=== PATIENT | female | born 1940 | race African-American/Black ===

== ENCOUNTER 2017-11-12 08:14 | Inpatient (IN) ==
[2017-11-12] MEDS ORDERED: Metoprolol Tartrate 25 MG Tablet PO SCH (09:15)
[2017-11-12] MEDS ORDERED: Chlorhexidine Gluconate 2% 1 Pack (2 Cloths) TOPICAL SCH (09:15)
[2017-11-12] MEDS ORDERED: Sodium Chlor 0.9% Inj 500 ML IV.SIG SCH (10:00)
[2017-11-12] MEDS ORDERED: ceFAZolin 2 GM/NS 100 ML IV; Q8H IV.SIG SCH ×2 (10:00)
[2017-11-12] MEDS ORDERED: Bupivacaine/Epinephrine 0.5% Inj 50 ML Vial ONE (11:19)
[2017-11-12] MEDS ORDERED: Neostigmine Inj 5 MG/5 ML Syringe IV.PUSH ONE (12:00)
[2017-11-12] MEDS ORDERED: Labetalol HCl Inj 100 MG/20 ML Vial IV.CONT ONE (12:00)
[2017-11-12] MEDS ORDERED: Glycopyrrolate Inj 1 MG/5 ML Syringe IV.PUSH ONE (12:00)
[2017-11-12] MEDS ORDERED: Lidocaine PF 1% Inj 5 ML Syringe INFILTRATN ONE (12:00)
[2017-11-12] MEDS ORDERED: fentaNYL Citrate Inj 100 MCG/2 ML Ampul ONE ×2 (15:08→16:51)
[2017-11-12] MEDS ORDERED: Morphine Inj 4 MG/ML Vial IV.PUSH PRN (16:16)
[2017-11-12] MEDS ORDERED: Post-op Orders (for Pharmacy) OTHER ONE (16:16)
[2017-11-12] MEDS ORDERED: Naloxone Inj 0.4 MG/ML Vial IV.PUSH PRN (16:16)
--- NOTE | 2017-11-12 16:16 | P.OP ---
Date of procedure: 11/18/17 Procedure: Robot assisted laparoscopic ascending colectomy Anesthesia: GETA Surgeon: Greg Lewis MD Sports Medicine Coordinator: Areli LIU Estimated blood loss (mL): 50 Pathology: other (right colon with polyp) Operation and Findings: EBL: 50 cc Operative findings: Uncomplicated ascending colectomy. Ascending colon opened on the back table with approximately 2 inch diameter flat polyp. Procedure in detail: The patient was taken to the operating room and placed in the supine position. Gen. endotracheal anesthesia was induced. The abdomen was prepped and draped in usual sterile fashion and a surgical timeout was performed to verify correct patient procedure and site. A 12 mm incision was made in the left lower abdomen and a 5mm Optiview port was placed in her left lower abdomen. The abdomen was insufflated to 15 mmHg with CO2 gas which the patient tolerated well. An 8 mm long robotic trocar was placed in the suprapubic area. A 12 mm robotic port was placed in the left upper abdomen. An 8 mm robotic port was placed in the subxiphoid area to the left of the falciform ligament. A 5 mm legal executive assistant port was placed in the left lower abdomen. The initial camera port was changed to a 12 mm disposable port. The patient was turned slightly to the left and in slight trendelenberg. Small bowel was placed towards the pelvis and left-sided of the abdomen. The cecum and ascending colon was visualized. At this point the robot was docked. The ascending and transverse colon were elevated and the ileocolic pedicle identified in the mesentery. Careful dissection with the hook electrocautery was used to identify the vessels and dissect them free from surrounding fatty tissue. The duodenum was also well visualized. The ileocolic vessels were taken down using the da janeth vessel sealer device. Blunt dissection through the mesentery underneath the hepatic flexure was performed until the liver was visible. The hepatic flexure was then taken down with the vessel sealer. Lateral attachments of the appendix and terminal ileum and cecum and ascending colon were divided. The remaining mesentery was divided using the vessel sealer up into a point about 5-10 cm from the ileocecal valve. The terminal ileum was divided using the robotic blue load stapler. Mesentery to the transverse colon just to the right of midline was divided and the colon freed of surrounding fat. The proximal transverse colon was transected with the robotic blue load stapler using 2 fires. The tinea of the transverse colon was free of any fatty tissue. The terminal ileum was brought up to lay alongside the transverse colon. An a [id number] functional end-to-end anastomosis was then performed. A 3-0 silk suture was placed at the end of the colon and small bowel for traction. The hook electrocautery was used to create small enterotomy the antimesenteric small bowel and colon. The da Janeth blue load stapler was placed and fired at the antimesenteric portion. There is no bleeding and no tension on the anastomosis. For closure of the common enterotomy three 3-0 silk sutures were placed to reapproximate the edges. A second blue load stapler was fired to close the enterotomy. 3-0 silk suture was placed at the end of the staple line. The mesentery was closed with a running 2-0 silk suture. The robot was then undocked. the incision in the left upper abdomen was elongated to approximately 3-4 cm. The specimen was removed through this incision after placement of an Rufus wound retractor. The fascia was then closed in 2 layers with running #1 PDS. The incision was irrigated. Skin closed with with 4-0 subcuticular Monocryl and Dermabond. The patient tolerated the procedure well was extubated and taken to PACU in stable condition. All sponge and management counts were correct.
[2017-11-12] MEDS: Ketorolac Inj 30 MG/ML (IVP) Vial IV.PUSH SCH ×2 (18:15→23:30)
[2017-11-12] MEDS: Senna/Docusate Sodium 8.6/50 MG Tablet PO SCH (23:23)
[2017-11-13] MEDS: Sod Chloride 0.9% Inj 1,000 ML IV.CONT SCH ×3 (00:45→20:07)
[2017-11-13] MEDS: Ketorolac Inj 30 MG/ML (IVP) Vial IV.PUSH SCH ×4 (06:01→23:08)
[2017-11-13] MEDS: amLODIPine 5 MG Tablet PO SCH (10:12)
[2017-11-13] MEDS: Lisinopril 20 MG Tablet PO SCH (10:13)
[2017-11-13] MEDS: Senna/Docusate Sodium 8.6/50 MG Tablet PO SCH ×2 (10:13→20:08)
--- NOTE | 2017-11-13 11:58 | P.PNGS ---
Subjective Interval history: She denies pain except for mild left side pain when she gets up. No other complaints. Physical Exam Vital signs: Vital Signs 11/12/17 16:45 11/12/17 17:00 11/12/17 17:15 Temperature 95.6 F L 96.4 F L Pulse Rate 65 57 L 58 L Respiratory Rate 12 12 12 Blood Pressure 160/71 H 157/72 H 162/72 H Pulse Oximetry 100 100 100 11/12/17 17:30 11/12/17 17:45 11/12/17 18:00 Temperature 97 F L Pulse Rate 61 60 61 Respiratory Rate 12 12 12 Blood Pressure 148/66 H 147/65 H 140/65 Pulse Oximetry 100 100 100 11/12/17 18:15 11/12/17 18:25 11/12/17 20:00 Temperature 97.2 F L 97.3 F L Pulse Rate 61 79 Respiratory Rate 12 18 Blood Pressure 147/68 H 159/78 H Pulse Oximetry 100 100 100 11/13/17 00:00 11/13/17 08:00 Temperature 97.8 F 98.4 F Pulse Rate 68 73 Respiratory Rate 18 18 Blood Pressure 165/87 H 142/79 H Pulse Oximetry 99 100 Intake & Output 11/12/17 11/13/17 11/13/17 18:59 06:59 18:59 Intake Total 1800 / 1800 440 / 440 Output Total 725 / 725 750 / 750 Balance 1075 / 1075 -310 / -310 Weight 77.1 kg Intake: IV 200 / 200 200 / 200 Ofirmev Inj 1,000 mg In 100 ml 100 / 100 200 / 200 @ 400 mls/hr IV.SIG Q6H HAN Rx# :[id number] Ancef Inj 2,000 MG In NS Inj 80 100 / 100 ML @ 200 mls/hr IV.SIG REPAIR WELDER HAN Rx#:[id number] Flagyl 500 MG Inj 100 ML @ 0 0 / 0 mls/hr IV.SIG .STK-MED ONE Rx#: [id number] Oral 240 / 240 Anesthesia Amount 1600 / 1600 Output: Urine 750 / 750 Estimated Blood Loss 50 / 50 Urine Amount (Catheter) 675 / 675 Indwelling Urethral Catheter 675 / 675 Other: Weight On Admission 77.1 kg Narrative: NAD Inc c/d/i Galvan jewell urine - Urinary Catheter Management Indwelling Urethral Catheter Cath placed during this visit: yes Reason for continuing: Other continuation reason Insertion date: 11/12/17 Assessment and Plan - Plan POD 1 s/p ascending colectomy. Stable post op. D/c galvan. Fulls. Encourage ambulation.
[2017-11-13] MEDS: Heparin - SQ 10,000 UNITS/ML Vial SQ SCH (18:12)
[2017-11-14] MEDS: Heparin - SQ 10,000 UNITS/ML Vial SQ SCH ×2 (04:55→18:28)
[2017-11-14] MEDS: Ketorolac Inj 30 MG/ML (IVP) Vial IV.PUSH SCH ×4 (05:00→23:41)
[2017-11-14] MEDS: amLODIPine 5 MG Tablet PO SCH (08:23)
[2017-11-14] MEDS: Senna/Docusate Sodium 8.6/50 MG Tablet PO SCH ×2 (08:23→21:21)
[2017-11-14] MEDS: Sod Chloride 0.9% Inj 1,000 ML IV.CONT SCH (08:23)
[2017-11-14] MEDS: Lisinopril 20 MG Tablet PO SCH (08:24)
--- NOTE | 2017-11-14 09:20 | P.PNGS ---
Subjective Interval history: She is tolerating fulls. Some belching and some flatus. No nausea. Minimal pain. Has been ambulatinig in halls with assistance. She wants to go home. Physical Exam Vital signs: Vital Signs 11/13/17 12:00 11/13/17 16:00 11/13/17 20:06 Temperature 98.5 F 97.9 F Pulse Rate 73 67 Respiratory Rate 18 18 18 Blood Pressure 156/66 H 181/77 H Pulse Oximetry 100 99 11/13/17 20:36 11/14/17 00:07 11/14/17 02:36 Temperature 98.0 F 98.3 F Pulse Rate 72 74 Respiratory Rate 20 17 Blood Pressure 158/80 H 173/77 H 162/74 H Pulse Oximetry 100 97 11/14/17 08:00 Temperature 98.5 F Pulse Rate 80 Respiratory Rate 17 Blood Pressure 181/84 H Pulse Oximetry 98 Intake & Output 11/13/17 11/14/17 11/14/17 18:59 06:59 18:59 Intake Total 100 / 100 2680 / 2680 1000 / 1000 Output Total 1999 / 1999 Balance 100 / 100 680 / 680 1000 / 1000 Weight 77 kg Intake: IV 100 / 100 2200 / 2200 1000 / 1000 NS Inj 1,000 ML @ 75 mls/hr IV. 1000 / 1000 1000 / 1000 CONT .[id number] HAN Rx#:[id number] Ofirmev Inj 1,000 mg In 100 ml 100 / 100 @ 400 mls/hr IV.SIG Q6H HAN Rx# :[id number] LR 1000 mL Inj 1,000 ML @ 30 1000 / 1000 mls/hr IV.SIG .Q24H HAN Rx#: [id number] Oral 480 / 480 Output: Urine 1999 Narrative: NAD Abd: soft, inc c/d/i - Urinary Catheter Management Indwelling Urethral Catheter Cath placed during this visit: yes, but has since been removed by the nurse Reason for continuing: Not indwelling catheter Insertion date: 11/12/17 Removal date: 11/13/17 Removal time: 13:20 Assessment and Plan - Plan POD 2 s/p ascending colectomy. Stable post op. Soft diet. Encourage ambulation. Will likely be ready for dc home tomorrow. Discussed in detail with the patient and her daughter.
[2017-11-15] MEDS: Ketorolac Inj 30 MG/ML (IVP) Vial IV.PUSH SCH ×2 (05:12→12:39)
[2017-11-15] MEDS: Heparin - SQ 10,000 UNITS/ML Vial SQ SCH (05:12)
[2017-11-15] MEDS: Lisinopril 20 MG Tablet PO SCH (08:48)
[2017-11-15] MEDS: Senna/Docusate Sodium 8.6/50 MG Tablet PO SCH (08:49)
[2017-11-15] MEDS: amLODIPine 5 MG Tablet PO SCH (08:49)
--- NOTE | 2017-11-15 11:06 | P.DS ---
Date of admission: 11/12/17 08:14 Primary care physician: UNKNOWN Brief History from admission: 77 yo F with ascending colon large flat polyp unable to be removed endoscopically scheduled for robot assisted ascending colectomy. DS: Diagnosis - Discharge Diagnosis (1) Polyp of ascending colon Status: Acute DS: Medications - Discharge Medications Prescriptions: ketorolac 10 mg PO Q6H PRN #8 tab PRN Reason: Acute Pain DS: Summary Hospital Course: Patient did well post op. Liquid and then soft diet tolerated. She had a bowel movt the evening prior to discharge. Pain controlled with toradol and tylenol. Ambulating well in halls. - Time Spent with Patient Total time spent providing and/or coordinating discharge services: Less than 30 minutes - Quality: VTE Deep Vein Thrombosis/Pulmonary Embolism Present on Admission: No Exam Vital signs: Vital Signs 11/14/17 12:00 11/14/17 16:00 11/14/17 20:26 Temperature 98.4 F 98.4 F 98.3 F Pulse Rate 81 77 80 Respiratory Rate 18 18 18 Blood Pressure 180/64 H 186/83 H 168/70 H Pulse Oximetry 98 94 L 98 11/14/17 23:55 11/15/17 02:15 11/15/17 05:49 Temperature 99.1 F Pulse Rate 71 Respiratory Rate 16 18 Blood Pressure 178/76 H 154/70 H Pulse Oximetry 98 11/15/17 08:00 Temperature 97.9 F Pulse Rate 63 Respiratory Rate 18 Blood Pressure 170/78 H Pulse Oximetry 98 Intake & Output 11/14/17 11/15/17 11/15/17 18:59 06:59 18:59 Intake Total 1979 960 / 960 Balance 1979 960 / 960 Weight 77 kg Intake: IV 1000 / 1000 NS Inj 1,000 ML @ 75 mls/hr IV. 1000 / 1000 CONT .[id number] HAN Rx#:[id number] Oral 980 / 980 960 / 960 Other: # Voids 5 2 Date of Last Bowel Movement 11/14/17 # Bowel Movements 1 Narrative: NAD Abd: soft, nondistended, inc c/d/i Results Procedures completed during hospitalization: Robot assisted lap ascending colectomy Completed studies during hospitalization: Pending at discharge 11/12/17 08:19 Surgical [PTH] Routine Discharge Plan - Discharge Disposition Patient Disposition: 01 Discharge Home - Discharge Condition Condition: Good - Discharge Order Discharge Orders: Discharge Order (Routine); Ordered 11/15/17 Ordered By: Greg Lewis - Physicians Team Primary Care Provider: UNKNOWN, Attending Provider: Greg Lewis - Rxs /Orders / Referrals /Forms Prescriptions: New ketorolac 10 mg Tablet 10 mg PO Q6H PRN (Reason: Acute Pain) Qty: 8 RF: 0 Continue amlodipine 5 mg Tablet 5 mg PO DAILY ergocalciferol (vitamin D2) [Vitamin D2] 50,000 unit Capsule 50,000 unit PO QWEEK lisinopril 40 mg Tablet 40 mg PO DAILY lovastatin 20 mg Tablet 20 mg PO QPM Referrals: Greg Lewis MD [GENERAL SURGERY] - See Instructions (as scheduled) UNKNOWN, [Primary Care Provider] - See Instructions
== END 2017-11-15 14:06 | disposition home or self-care (01) ==
LOC: HSDI 08:14 → N07 18:56
PROVIDERS: ADMIT Surgery; ATTEND Surgery